=== PATIENT | female | born 1930 | race Caucasian/White ===

== ENCOUNTER 2016-11-06 02:42 | Emergency (ER) | payer OTHER, MEDICARE ==
[~2016-11-06] VITALS: Ht 149.9 cm; Wt 72.6 kg
[~2016-11-06 02:42] MED LIST: AMLODIPINE BESY10 M1 PO; CALCITRIOL0.25 MC1 PO; CANDESARTAN CIL32 M1 PO; GLUCOSAMIN-CHO1 EACH PO; LASIX40 M1 PO; LATANOPROST2.5 ML OPH; MECLIZINE HCL12.5 M1 PO; METOPROLOL SUCC50 M2 PO; PRESERVISION PO; SIMVASTATIN20 M2 PO; TIMOLOL MALEATE5 M4 OPH; ZOFRAN4 M2 PO
--- NOTE | 2016-11-06 03:02 | ED GENERAL ADULT ---
History of Present Illness General Chief Complaint: Syncope and Near-Syncope Stated Complaint: BIBA, SYNCOPE Source: patient, old records, EMS Exam Limitations: no limitations Vital Signs & Intake/Output Vital Signs & Intake/Output Vital Signs Date Time Temp Pulse Resp B/P Pulse O2 O2 Flow FiO2 Ox Delivery Rate 11/06 628 97.5 75 16 149/66 96 11/06 0529 98.0 76 18 150/71 96 11/06 0248 98.3 85 20 172/81 95 Room Air Allergies Coded Allergies: NO KNOWN ALLERGIES (03/11/16) Reconcile Medications Amlodipine Besylate 10 MG TABLET 1 TAB PO DAILY HTN (Reported) Calcitriol 0.25 MCG CAPSULE 1 CAP PO DAILY VITAMIN D SUPPLEMENT (Reported) Candesartan Cilexetil 32 MG TABLET 1 TAB PO DAILY HTN (Reported) Furosemide (Lasix) 40 MG TABLET 1 TAB PO DAILY KIDNEY DISEASE (Reported) Gluc/Bernardo-MSM#2/C/D3/Rickie/Born (Nnyswxbxlp-Uxwykzrynvp-KYY Tab) 1 EACH TABLET 1 TAB PO DAILY VITAMINS (Reported) Latanoprost 2.5 ML DROPS 1 GTT OPH QPM GLAUCOMA (Reported) Meclizine HCl 12.5 MG TABLET 1 TAB PO TIDPRN PRN DIZZINESS Metoprolol Succinate 50 MG TAB.ER.24H 1 TAB PO DAILY HTN (Reported) Ondansetron HCl (Zofran) 4 MG TABLET 1 TAB PO Q8 nausea [PRESERVISION] 2 GEL PO DAILY GLAUCOMA (Reported) Simvastatin (Simvastatin*) 20 MG TABLET 1 TAB PO QPM HIGH CHOLESTEROL ( Reported) Timolol Maleate 5 ML DROPS 1 GTT OPH BID GLAUCOMA (Reported) Triage Note: PT WITH HX VERTIGO BIBA FROM HOME C/O DIZZINESS SINCE YESTERDAY MORNING. PT REPORTS DIZZINESS IMPROVING YESTERDAY MORNING AFTER TAKING MECLIZINE BUT REPORTS FALLING AFTER DIZZINESS RETURNING AROUND 11PM. PT STILL C/O DIZZINESS AND C/O LEFT WRIST PAIN. PT DENIES CP,SOB , N/V,FEVER AND CILLS. Triage Nurses Notes Reviewed? yes HPI: Patient will up Saturday morning with room spinning dizziness. Patient took an Antivert and felt better. Patient states that periodically through the day she will get minor episodes of vertigo but they would resolve very quickly. This evening while she was getting ready for bed she took another Antivert. Patient then fell to the ground. Patient states that she did not pass out or feel lightheaded, she just lost her balance and fell. Patient denies any loss of consciousness. Patient denies any head injury. Patient states that she was experiencing room spinning dizziness the time of the fall. Patient states that she still has some Rocephin and dizziness but it is improved from where it was. Patient denies any headache or blurry vision. Patient is complaining of left wrist pain since the fall. The pain is throbbing in nature. Pain increases with movement. There is no radiation of pain. Patient rates the pain at 4 out of 10. (DIAMANTE PIERSON MD) Past History Travel History Traveled to [place] past 21 day No Medical History Any Pertinent Medical History? 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 No (DIAMANTE PIERSON MD) Review of Systems Review of Systems Constitutional: Reports: no symptoms. EENTM: Reports: no symptoms. Respiratory: Reports: no symptoms. Cardiovascular: Reports: no symptoms. GI: Reports: no symptoms. Genitourinary: Reports: no symptoms. Musculoskeletal: Reports: see HPI, joint pain. Skin: Reports: no symptoms. Neurological/Psychological: Reports: see HPI. Hematologic/Endocrine: Reports: no symptoms. Immunologic/Allergic: Reports: no symptoms. All Other Systems: Reviewed and Negative (DIAMANTE PIERSON MD) Physical Exam Physical Exam General Appearance: well developed/nourished, alert, awake, anxious, mild distress Head: atraumatic, normal appearance Eyes: Bilateral: other (NO NYSTAGMUS). Ears, Nose, Throat: normal pharynx, normal ENT inspection, hearing grossly normal Neck: normal inspection, supple, full range of motion, no midline tenderness Respiratory: normal breath sounds, chest non-tender, no respiratory distress, lungs clear Cardiovascular: regular rate/rhythm, normal peripheral pulses Gastrointestinal: normal bowel sounds, soft, non-tender, no organomegaly Back: normal inspection, normal range of motion Extremities: normal inspection, normal capillary refill, swelling, tenderness Neurologic/Psych: no motor/sensory deficits, awake, alert, oriented x 3, normal mood/affect Skin: intact, normal color, warm/dry Core Measures ACS in differential dx? Yes ASA ordered for poss ACS? No-ACS ruled out CVA/TIA Diagnosis: No Severe Sepsis Present: No Septic Shock Present: No (KENNA MUELLER,DIAMANTE Whitten) Progress Differential Diagnoses I considered the following diagnoses in my evaluation of the patient: [Vertigo, syncope, loss abnormality, wrist fracture] Plan of Care: Orders Procedure Date/time Status Heart Healthy Diet 11/06 B Active TROPONIN LEVEL 11/06 0900 Complete EKG 11/06 0900 Active Durable Medical Equipment 11/06 0401 Active Telemetry/Motorized Squad Commanding Officer 11/06 0340 Active Discontinue Telemetry/Monitor 11/06 0256 Complete URINALYSIS 11/06 025 Active TROPONIN LEVEL 11/06 0256 Complete ETHANOL 11/06 025 Complete COMPREHENSIVE METABOLIC PANEL 11/06 0256 Complete CBC WITHOUT DIFFERENTIAL 11/06 255 Complete EKG 11/06 0256 Active Laboratory Tests 11/06/16 0907: Troponin I 0.02 11/06/16 0358: Anion Gap 10, Estimated GFR 21 L, BUN/Creatinine Ratio 22.7, Glucose 124 H, Calcium 9.4, Total Bilirubin 0.4, AST 15, ALT 21, Alkaline Phosphatase 62, Troponin I 0.02, Total Protein 6.7, Albumin 4.1, Globulin 2.6, Albumin/Globulin Ratio 1.6, Serum Alcohol < 10.0 11/06/16 0308: CBC w Diff NO MAN DIFF REQ, RBC 4.50, MCV 85.0, MCH 28.8, RDW 14.0, MPV 7.6, Gran % 62.7, Lymphocytes % 21.8, Monocytes % 10.3 H, Eosinophils % 4.7, Basophils % 0.5, Absolute Granulocytes 4.2, Absolute Lymphocytes 1.5, Absolute Monocytes 0.7 H, Absolute Eosinophils 0.3, Absolute Basophils 0, PUBS MCHC 33.9 Diagnostic Imaging: Viewed by Me: Radiology Read. Discussed w/RAD: Radiology Read. Radiology Impression: PATIENT: ERINN LOZA PRESENT AGE: 86 PATIENT ACCOUNT NO: [id number] : 30 LOCATION: [facility] [place] ORDERING PHYSICIAN: DIAMANTE PIERSON MD SERVICE DATE: 11/06/16 EXAM TYPE: RAD - XRY-WRIST COMPLETE-LEFT EXAMINATION: XR WRIST, LEFT CLINICAL INFORMATION: Pain post fall COMPARISON: None TECHNIQUE: AP, lateral, and oblique views of the left wrist. FINDINGS: The bones are osteopenic. There is a nondisplaced distal radial metaphyseal fracture. No definite intra-articular extension. No significant angulation. Mild soft tissue swelling. The carpal rows are appropriately aligned. IMPRESSION: Nondisplaced distal radial metaphyseal fracture. No definite intra-articular extension. DICTATED BY: ZEE BARNES MD DATE/TIME DICTATED:11/06/16336 [employer] SPECIALIST:JESSEE DATE/TIME TRANSCRIBED:336 CONFIDENTIAL, DO NOT COPY WITHOUT APPROPRIATE AUTHORIZATION. < Electronically signed in Other Vendor System> SIGNED BY: ZEE BARNES MD 11/06/16 034 Initial ED EKG: NSR, nonspecific ST T wave chg Prior EKG: unchanged Rhythm Strip: normal sinus rhythm Hand-Off Endorsed To: KENYON ROE MD Endorsed Time: 0700 Pending: labs (DIAMANTE PIERSON MD) Comments: Feels better, able to ambulate without difficulty (KENYON ROE MD) Departure Departure Condition: Stable Referrals: EUGENE MUELLER,JEM DEVI MD,KRISTEN (PCP/Family) Departure Forms: Customer Survey General Discharge Information (DIAMANTE PIERSON MD) Departure Time of Disposition: 1010 Disposition: HOME OR SELF CARE Clinical Impression Primary Impression: Left wrist fracture Qualifiers: Encounter type: initial encounter Fracture type: closed Qualified Code: S62.102A - Fracture of unspecified carpal bone, left wrist, initial encounter for closed fracture Secondary Impressions: Vertigo Prescriptions: Current Visit Scripts Scopolamine Hydrobromide (Transderm-Scop) 1 PAT TOP Q3D PRN vertigo #4 PAT apply to the hairless area behind 1 ear at least 4 hours before effect is required; reapply every 3 days as needed (JYOTHI MUELLER,KENYON) Procedures Splinting Location: LEFT WRIST Manual Alignment Performed: No Pre-Made Type: velcro Splint: wrist Splint Applied By: splint applied by me Pre-Proc Neuro Vasc Exam: normal Post-Proc Neuro Vasc Exam: normal (KENNA MUELLER,DIAMANTE Whitten) Critical Care Note Critical Care Note Critical Care Time: non-applicable (KENNA MUELLER,DIAMANTE Whitten)
[2016-11-06 03:22] LABS: ABSOLUTE BASOPHIL COUNT 0 /CUMM (0.0-0.2); ABSOLUTE EOSINOPHIL COUNT 0.3 /CUMM (0.0-0.7); ABSOLUTE GRANULOCYTE CT 4.2 /CUMM (1.4-6.5); ABSOLUTE LYMPH COUNT 1.5 /CUMM (1.2-3.4); ABSOLUTE MONOCYTE COUNT 0.7 /CUMM (0.10-0.60); BASOPHIL % 0.5 % (0.0-2.0); EOSINOPHIL % 4.7 % (0-5); GRANULOCYTE % 62.7 % (42.2-75.2); HEMATOCRIT 38.3 % (37-47); MEAN CORPUSCULAR HGB 28.8 PG (27.0-31.0); MEAN CORPUSCULAR HGB CONC 33.9 G/DL (33.0-37.0); MEAN PLATELET VOLUME 7.6 FL (7.4-10.4); PLATELET COUNT 230 /CUMM (130-400); WHITE BLOOD CELL COUNT 6.7 /CUMM (4.8-10.8)
--- NOTE | 2016-11-06 03:41 | RADIOLOGY REPORT ---
EXAMINATION: XR WRIST, LEFT CLINICAL INFORMATION: Pain post fall COMPARISON: None TECHNIQUE: AP, lateral, and oblique views of the left wrist. FINDINGS: The bones are osteopenic. There is a nondisplaced distal radial metaphyseal fracture. No definite intra-articular extension. No significant angulation. Mild soft tissue swelling. The carpal rows are appropriately aligned. IMPRESSION: Nondisplaced distal radial metaphyseal fracture. No definite intra-articular extension.
[2016-11-06] MEDS ORDERED: TRANSDERM-SCOP1 EACH TOP (10:10)
[2016-11-06 10:33] VITALS: BP 153/68
== END 2016-11-06 10:40 ==
LOC: ERH 02:42
PROVIDERS: Emergency Medicine
DX: S52.592A Other fractures of lower end of left radius, initial encounter for closed fracture (principal); W19.XXXA Unspecified fall, initial encounter
CPT/HCPCS: 73110-LT; 93005; 93010; G0480; J3101